=== PATIENT | male | born 1965 | race Caucasian/White ===

== ENCOUNTER 2021-02-03 13:54 | Inpatient (IN) ==
[2021-02-03] MEDS ORDERED: DEXTROSE 50% 25 GM/50 ML VIAL IV PRN (14:21)
[2021-02-03] MEDS ORDERED: GLUCAGON 1 MG VIAL IM PRN (14:21)
[2021-02-03] MEDS ORDERED: NITROGLYCERIN SL 0.4 MG TABLET SL PRN (14:43)
[2021-02-03] MEDS ORDERED: CLORAZEPATE 3.75 MG TABLET PO PRN (14:43)
[2021-02-03] MEDS ORDERED: MORPHINE 2 MG/1 ML SYRINGE IV PRN (14:43)
[2021-02-04 04:21] LABS: ABG Base Excess 0.3 MMOL/L (-2.5-2.5); ABG HCO3 24.7 MMOL/L (20-26); ABG Oxygen Saturation 96.8 % (95-100); ABG PCO2 35.9 MM HG (35-48); ABG PH 7.434 (7.35-7.45); ABG PO2 83.3 MM HG (80-95); ABG TCO2 20.6 MMOL/L (23-27)
[2021-02-04 07:07] LABS: Basophils % 0.8 % (0.0-0.8); Eosinophils # 0.1 10*3/uL (0.0-0.87); Eosinophils % 2.3 % (0.00-10.9); Hemoglobin 14.5 GM/DL (14.0-18.0); Immature Granulocytes % 0.4 %; Immature Granulocytes Absolute 0.02 #; Lymphocytes # 1.4 10*3/uL (1.4-4.0); Lymphocytes % 28.6 % (21.2-54.2); Mean Corpuscular HGB Conc 33.7 GM/DL (32-36); Mean Corpuscular Volume 92.7 FL (87-102); Mean Platelet Volume 10.3 FL (9.6-12.0); Monocytes % 6.3 % (1.7-12.7); Neutrophils % 61.6 % (38.7-73.9); Platelet Count 176 T/CUMM (130-400); Red Blood Count 4.64 MC/CUMM (3.8-5.5); Red Cell Distribution Width 11.9 % (9.3-17.3); White Blood Count 4.8 T/CUMM (4-12)
[2021-02-04 07:32] LABS: Eosinophils 3 % (0-10); Hypochromasia Slight; Lymphocytes 23 % (20-55); Microcytosis Slight; Segmented Neutrophils 66 % (50-85); Total Cells Counted 100
[2021-02-04 07:33] LABS: Atypical Lymphocytes Few; Platelet Estimate Adequate
[2021-02-04 07:49] LABS: Alanine Aminotransferase 42 U/L (16-61); Albumin 3.4 G/DL (3.4-5.0); Alkaline Phosphatase 88 U/L (45-117); Aspartate Amino Transferase 24 U/L (0-37); Blood Urea Nitrogen 12 MG/DL (7-18); Calcium 8.9 MG/DL (8.5-10.1); Estimated Glom Filtration Rate 120 ML/MIN; Glucose 102 MG/DL (74-106); Total Protein 6.9 G/DL (6.4-8.2)
[2021-02-04 07:56] LABS: Sodium 136 MMOL/L (136-145)
[2021-02-04 07:59] LABS: Carbon Dioxide 26 MMOL/L (21-32)
[2021-02-04] MEDS ORDERED: SODIUM CHLORIDE 0.9% 1,000 ML IV SCH (09:00)
[2021-02-04] MEDS: CHLORHEXIDINE 0.12% ORAL RINSE 60 ML BOTTLE SWISH/SPIT SCH ×2 (10:36→21:00)
[2021-02-04] MEDS: CHLORHEXIDINE 4% SOLN 118 ML BOTTLE TOP SCH ×3 (10:38→21:01)
[2021-02-04] MEDS ORDERED: DIAZEPAM 5 MG TABLET PO ONE (10:58)
[2021-02-04] MEDS ORDERED: PANTOPRAZOLE 40 MG TABLET PO ONE (10:58)
[2021-02-04] MEDS: METOPROLOL TARTRATE 25 MG TABLET PO SCH (20:59)
[2021-02-04] MEDS ORDERED: PANTOPRAZOLE 40 MG TABLET PO SCH (21:00)
[2021-02-04] MEDS ORDERED: ROSUVASTATIN 10 MG TABLET PO SCH (21:00)
[2021-02-04] MEDS ORDERED: ASPIRIN EC 81 MG TABLET PO SCH (21:00)
[2021-02-05] MEDS ORDERED: CEFUROXIME INJ 1,500 MG in SODIUM CHLORIDE 0.9% 100 ML IV ONE (05:00)
[2021-02-05] MEDS ORDERED: VANCOMYCIN 500 MG VIAL ONE (05:32)
[2021-02-05] MEDS ORDERED: PAPAVERINE 60 MG/2 ML VIAL ONE (05:32)
[2021-02-05] MEDS ORDERED: VANCOMYCIN 1,000 MG VIAL ONE (05:32)
[2021-02-05] MEDS ORDERED: MIDAZOLAM 10 MG/2 ML VIAL ONE (05:49)
[2021-02-05] MEDS ORDERED: SUFentanil 50 MCG/ML AMP ONE ×2 (05:50→08:53)
[2021-02-05] MEDS ORDERED: SUFentanil 250 MCG/5 ML AMP ONE (05:50)
[2021-02-05] MEDS: METOPROLOL TARTRATE 25 MG TABLET PO SCH (05:51)
[2021-02-05] MEDS ORDERED: DIAZEPAM 5 MG TABLET PO ONE (06:00)
[2021-02-05] MEDS ORDERED: SODIUM CHLORIDE 0.9% 1,000 ML IV SCH (06:00)
[2021-02-05] MEDS ORDERED: PANTOPRAZOLE 40 MG TABLET PO ONE (06:00)
[2021-02-05 07:52] LABS: ABG Base Excess -1.7 MMOL/L (-2.5-2.5); ABG Oxygen Saturation 99.9 % (95-100); ABG PCO2 35.9 MM HG (35-48); ABG PH 7.404 (7.35-7.45); ABG TCO2 19.5 MMOL/L (23-27); Glucose Heart Surgery 121 MG/DL (74-106); Hematocrit Heart Surgery 40.7 PERCENT (42-52); Hemoglobin Heart Surgery 13.2 G/DL (14.0-18.0); Ionized Calcium Arterial 1.17 MMOL/L (1.21-1.46); PCO2 Patient Temp Arterial 35.9 MMHG; PH Patient Temp Arterial 7.404; Patient Temperature 37 CELCIUS; Potassium Heart/CVR 3.7 MMOL/L (3.5-5.1); Sodium Heart/CVR 138 MMOL/L (135-145)
[2021-02-05] MEDS ORDERED: SEVOFLURANE 1 UNIT/15 MINUTE INH ONE ×2 (08:30→11:14)
[2021-02-05] MEDS ORDERED: SODIUM CHLORIDE 0.9% 250 ML IV ONE (08:30)
[2021-02-05] MEDS ORDERED: LIDOCAINE 2% 5 ML VIAL ONE ×2 (08:30→10:36)
[2021-02-05] MEDS ORDERED: SODIUM CHLORIDE 0.9% 2,000 ML IV ONE (08:30)
[2021-02-05] MEDS ORDERED: LACTATED RINGERS 1,000 ML IV ONE (08:30)
[2021-02-05] MEDS ORDERED: VECURONIUM 10 MG VIAL IV ONE (08:30)
[2021-02-05] MEDS ORDERED: PHENYLEPHRINE 1 MG/10 ML SYRINGE IV ONE (08:30)
[2021-02-05] MEDS ORDERED: AMINOCAPROIC ACID 5,000 MG/20 ML VIAL ONE (08:30)
[2021-02-05] MEDS ORDERED: ETOMIDATE 40 MG/20 ML VIAL IV ONE (08:30)
[2021-02-05] MEDS ORDERED: PHENYLEPHRINE DRIP 20 MG/250 ML PREMIX IV ONE (08:30)
[2021-02-05] MEDS ORDERED: GLYCOPYRROLATE 0.4 MG/2 ML VIAL ONE (08:30)
[2021-02-05] MEDS ORDERED: CALCIUM CHLORIDE 1,000 MG/10 ML VIAL IV ONE (08:53)
[2021-02-05 09:08] LABS: Hemoglobin Heart Surgery 9.3 G/DL (14.0-18.0); PCO2 Patient Temp Venous 33.7 MM HG; PH Patient Temp Venous 7.46; PO2 Patient Temp Venous 38.6 MM HG; VBG Base Excess -0.3 MEQ/L (0-4); VBG HCO3 24.1 MEQ/L (24-28); VBG Oxygen Saturation 82.8 %; VBG PCO2 38.4 MMHG (41-51); VBG PH 7.416; VBG PO2 47.7 MMHG (17-40); VBG Total CO2 25.3 MMOL/L
[2021-02-05] MEDS ORDERED: HEPARIN/NACL 0.9% 2 UNITS/ML 1,000 UNIT/500 ML BAG IV ONE (09:08)
[2021-02-05 09:13] LABS: Bilirubin,Urine Negative (Negative); Blood, Urine Small mg/dL (Negative); Glucose,Urine (UA) Negative (Negative); Ketones,Urine Negative (Negative); Mucus,Urine Few /LPF (Occasional); Nitrite,Urine Negative (Negative); Protein,Urine Negative; RBC,Urine 1 /HPF (0-4); Urine Appearance CLEAR (Clear); Urine Color Yellow (Yellow); Urine Specific Gravity 1.025 (1.001-1.035)
[2021-02-05 09:42] LABS: Hemoglobin Heart Surgery 11.4 G/DL (14.0-18.0); PCO2 Patient Temp Venous 30.5 MM HG; PH Patient Temp Venous 7.509; PO2 Patient Temp Venous 39.8 MM HG; VBG HCO3 24.4 MEQ/L (24-28); VBG Oxygen Saturation 84.6 %; VBG PCO2 34.8 MMHG (41-51); VBG PH 7.464; VBG PO2 49.1 MMHG (17-40); VBG Total CO2 25.5 MMOL/L
[2021-02-05 10:12] LABS: Potassium Heart/CVR 5.2 MMOL/L (3.5-5.1); VBG Base Excess 0.8 MEQ/L (0-4); VBG HCO3 23.9 MEQ/L (24-28); VBG Oxygen Saturation 78.1 %; VBG PCO2 33.2 MMHG (41-51); VBG PH 7.476; VBG PO2 41.8 MMHG (17-40)
[2021-02-05 10:13] LABS: Hemoglobin Heart Surgery 11.6 G/DL (14.0-18.0); PCO2 Patient Temp Venous 33.2 MM HG; PH Patient Temp Venous 7.476; PO2 Patient Temp Venous 41.8 MM HG
[2021-02-05] MEDS ORDERED: SODIUM BICARBONATE 50 MEQ/50 ML VIAL IV ONE ×2 (10:18→10:38)
[2021-02-05] MEDS ORDERED: POTASSIUM CHLORIDE RIDER 20 MEQ/100 ML PREMIX IV ONE (10:19)
[2021-02-05] MEDS ORDERED: NITROPRUSSIDE 50 MG/2 ML VIAL ONE (10:19)
[2021-02-05] MEDS ORDERED: CALCIUM CHLORIDE 1,000 MG/10 ML SYRINGE IV ONE (10:19)
[2021-02-05] MEDS ORDERED: PHENYLEPHRINE DRIP 40 MG/250 ML PREMIX IV ONE (10:19)
[2021-02-05] MEDS ORDERED: ALBUMIN 5% 12.5 GM/250 ML VIAL IV ONE ×2 (10:20→10:22)
[2021-02-05] MEDS ORDERED: ATROPINE 1 MG/10 ML SYRINGE ONE (10:21)
[2021-02-05] MEDS ORDERED: LIDOCAINE 100 MG/5 ML SYRINGE ONE (10:21)
[2021-02-05] MEDS ORDERED: EPINEPHrine 1 MG/10 ML SYRINGE ONE (10:21)
[2021-02-05] MEDS ORDERED: ALBUMIN 25% 25 GM/100 ML VIAL IV ONE (10:36)
[2021-02-05] MEDS ORDERED: MAGNESIUM SULFATE 5 GM/10 ML VIAL IV ONE (10:36)
[2021-02-05] MEDS ORDERED: methylPREDNISolone SOD SUC 1,000 MG/8 ML VIAL ONE (10:37)
[2021-02-05] MEDS ORDERED: MANNITOL 100 GM/500 ML BAG IV ONE (10:37)
[2021-02-05] MEDS ORDERED: DEXTROSE 5% KCL 20 MEQ 20 MEQ/1,000 ML BAG IV ONE (10:37)
[2021-02-05] MEDS ORDERED: PROTAMINE SULFATE 250 MG/25 ML VIAL IV ONE (10:37)
[2021-02-05] MEDS ORDERED: HEPARIN 10,000 UNIT/10 ML VIAL ONE (10:37)
[2021-02-05] MEDS ORDERED: FUROSEMIDE 20 MG/2 ML VIAL ONE (10:38)
[2021-02-05] MEDS ORDERED: PROTAMINE SULFATE 50 MG/5 ML VIAL IV ONE ×4 (10:38→12:00)
[2021-02-05 10:47] LABS: ABG Base Excess -0.9 MMOL/L (-2.5-2.5); ABG HCO3 24.2 MMOL/L (20-26); ABG Oxygen Saturation 98.4 % (95-100); ABG PCO2 41.5 MM HG (35-48); ABG PH 7.383 (7.35-7.45); ABG PO2 207.5 MM HG (80-95); ABG TCO2 25.4 MMOL/L (23-27); Glucose Heart Surgery 196 MG/DL (74-106); Hemoglobin Heart Surgery 11.4 G/DL (14.0-18.0); Ionized Calcium Arterial 1.17 MMOL/L (1.21-1.46); PCO2 Patient Temp Arterial 41.5 MMHG; PH Patient Temp Arterial 7.383; PO2 Patient Temp Arterial 207.5 MM HG; Patient Temperature 37 CELCIUS; Potassium Heart/CVR 3.8 MMOL/L (3.5-5.1); Sodium Heart/CVR 134 MMOL/L (135-145)
[2021-02-05] MEDS ORDERED: INSULIN REGULAR 100 UNIT/ML IV ONE (11:39)
[2021-02-05] MEDS ORDERED: NITROPRUSSIDE 100 MG in DEXTROSE 5% 250 ML IV PRN (11:39)
[2021-02-05] MEDS ORDERED: INSULIN REGULAR 100 UNIT/ML IV PRN (11:39)
[2021-02-05] MEDS ORDERED: CALCIUM CHLORIDE 1,000 MG/10 ML SYRINGE IV PRN (11:39)
[2021-02-05] MEDS ORDERED: ONDANSETRON 4 MG/2 ML VIAL IV PRN (11:39)
[2021-02-05] MEDS ORDERED: SODIUM CHLORIDE 0.45% 1,000 ML IV SCH ×2 (11:39)
[2021-02-05] MEDS ORDERED: POTASSIUM CHLORIDE RIDER 10 MEQ/100 ML PREMIX IV PRN (11:39)
[2021-02-05] MEDS ORDERED: MIDAZOLAM 2 MG/2 ML VIAL IV PRN (11:39)
[2021-02-05] MEDS ORDERED: MAGNESIUM SULF RIDER 2 GM/50 ML PREMIX IV PRN (11:39)
[2021-02-05] MEDS ORDERED: VECURONIUM 10 MG VIAL IV PRN ×2 (11:39)
[2021-02-05] MEDS ORDERED: DEXTROSE 50% 25 GM/50 ML VIAL IV PRN ×2 (11:39)
[2021-02-05] MEDS ORDERED: PHENYLEPHRINE DRIP 40 MG/250 ML PREMIX IV PRN (11:39)
[2021-02-05] MEDS ORDERED: CHLORHEXIDINE 4% SOLN 118 ML BOTTLE TOP PRN (11:39)
[2021-02-05] MEDS ORDERED: ALBUMIN 5% 12.5 GM/250 ML VIAL IV PRN (11:39)
[2021-02-05] MEDS ORDERED: ACETAMINOPHEN 650 MG SUPP RECTAL PRN (11:39)
[2021-02-05] MEDS ORDERED: INSULIN REGULAR DRIP 100 ML IV SCH (11:39)
[2021-02-05] MEDS ORDERED: MIDAZOLAM 10 MG/2 ML VIAL IV PRN (11:39)
[2021-02-05] MEDS ORDERED: MORPHINE 10 MG/1 ML VIAL IV PRN (11:39)
[2021-02-05] MEDS ORDERED: MAGNESIUM SULF RIDER 4 GM/100 ML PREMIX IV PRN (11:39)
[2021-02-05] MEDS ORDERED: LACTATED RINGERS 250 ML IV PRN (11:39)
[2021-02-05 11:48] LABS: ABG Base Excess -0.9 MMOL/L (-2.5-2.5); ABG HCO3 22.3 MMOL/L (20-26); ABG Oxygen Saturation 98.7 % (95-100); ABG PCO2 32.7 MM HG (35-48); ABG PH 7.452 (7.35-7.45); ABG PO2 206.2 MM HG (80-95); ABG TCO2 23.3 MMOL/L (23-27); Glucose Heart Surgery 175 MG/DL (74-106); Hemoglobin Heart Surgery 12.7 G/DL (14.0-18.0); Potassium Heart/CVR 3.3 MMOL/L (3.5-5.1)
[2021-02-05 11:49] LABS: Basophils % 0.3 % (0.0-0.8); Eosinophils % 0.4 % (0.00-10.9); Hematocrit 32.2 VOL% (42.0-52.0); Hemoglobin 11.2 GM/DL (14.0-18.0); Immature Granulocytes Absolute 0.08 #; Lymphocytes # 0.7 10*3/uL (1.4-4.0); Lymphocytes % 9.3 % (21.2-54.2); Mean Corpuscular HGB Conc 34.8 GM/DL (32-36); Mean Corpuscular Volume 90.4 FL (87-102); Mean Platelet Volume 10.5 FL (9.6-12.0); Monocytes % 2.6 % (1.7-12.7); Neutrophils % 86.4 % (38.7-73.9); Platelet Count 135 T/CUMM (130-400); Red Blood Count 3.56 MC/CUMM (3.8-5.5); Red Cell Distribution Width 11.7 % (9.3-17.3); White Blood Count 7.8 T/CUMM (4-12)
[2021-02-05 11:59] LABS: INR 1.2; PT Patient Result 13.4 SECS (10.5-12.0); Partial Thromboplastin Time 29.9 SECS (23.9-33.8)
[2021-02-05] MEDS: LACTATED RINGERS 1,000 ML IV PRN ×4 (12:00→18:05)
[2021-02-05 12:13] LABS: Albumin 2.8 G/DL (3.4-5.0); Bilirubin,Total 1.1 MG/DL (0.20-1.00); Calcium 7.7 MG/DL (8.5-10.1); Osmolality,Calculated 289.8 MOS/KG (273-304); Potassium 3.5 MMOL/L (3.5-5.1); Total Protein 5.1 G/DL (6.4-8.2)
[2021-02-05 12:14] LABS: CKMB % 7.5 %
[2021-02-05 12:26] LABS: High Sensitive Troponin I* 4103.6 ng/L (0-78)
[2021-02-05] MEDS: KETOROLAC 30 MG/1 ML VIAL IV SCH ×2 (13:53→18:30)
[2021-02-05 15:15] LABS: ABG Oxygen Saturation 97.8 % (95-100); ABG PCO2 37.1 MM HG (35-48); ABG PH 7.446 (7.35-7.45); ABG PO2 125.1 MM HG (80-95); ABG TCO2 26.1 MMOL/L (23-27); Glucose Heart Surgery 201 MG/DL (74-106); Hemoglobin Heart Surgery 8.3 G/DL (14.0-18.0); Potassium Heart/CVR 3.1 MMOL/L (3.5-5.1)
[2021-02-05 17:25] LABS: ABG Base Excess 0.3 MMOL/L (-2.5-2.5); ABG HCO3 24.9 MMOL/L (20-26); ABG Oxygen Saturation 96.7 % (95-100); ABG PCO2 40.1 MM HG (35-48); ABG PH 7.411 (7.35-7.45); ABG PO2 96.4 MM HG (80-95); ABG TCO2 26.1 MMOL/L (23-27); Glucose Heart Surgery 220 MG/DL (74-106); Hemoglobin Heart Surgery 9.9 G/DL (14.0-18.0); Potassium Heart/CVR 3.2 MMOL/L (3.5-5.1)
[2021-02-05] MEDS: POTASSIUM CHLORIDE RIDER 20 MEQ/100 ML PREMIX IV PRN ×3 (17:36→21:37)
[2021-02-05] MEDS: CEFUROXIME INJ 1,500 MG in SODIUM CHLORIDE 0.9% 100 ML IV SCH (20:11)
[2021-02-05 20:32] LABS: CKMB % 6.8 %; High Sensitive Troponin I* 4466.8 ng/L (0-78)
[2021-02-05] MEDS ORDERED: CHLORHEXIDINE 0.12% ORAL RINSE 60 ML BOTTLE SWISH/SPIT SCH (21:00)
[2021-02-05 21:24] LABS: ABG Base Excess -0.4 MMOL/L (-2.5-2.5); ABG HCO3 24.3 MMOL/L (20-26); ABG Oxygen Saturation 96.8 % (95-100); ABG PCO2 39.6 MM HG (35-48); ABG PH 7.405 (7.35-7.45); ABG PO2 96.2 MM HG (80-95); ABG TCO2 25.5 MMOL/L (23-27); Glucose Heart Surgery 183 MG/DL (74-106); Hemoglobin Heart Surgery 11.6 G/DL (14.0-18.0); Potassium Heart/CVR 3.8 MMOL/L (3.5-5.1)
[2021-02-05] MEDS: INSULIN REGULAR 100 UNIT/ML SUBCUT SCH ×2 (22:02→22:08)
[2021-02-06] MEDS: KETOROLAC 30 MG/1 ML VIAL IV SCH ×4 (01:25→21:18)
[2021-02-06] MEDS: INSULIN REGULAR 100 UNIT/ML SUBCUT SCH ×2 (02:22→05:36)
[2021-02-06 03:22] LABS: ABG HCO3 24.9 MMOL/L (20-26); ABG Oxygen Saturation 96.9 % (95-100); ABG PCO2 36.8 MM HG (35-48); ABG PH 7.448 (7.35-7.45); ABG PO2 94.4 MM HG (80-95); Glucose Heart Surgery 139 MG/DL (74-106); Hemoglobin Heart Surgery 10.9 G/DL (14.0-18.0); Potassium Heart/CVR 3.8 MMOL/L (3.5-5.1)
[2021-02-06 03:26] LABS: Basophils % 0.1 % (0.0-0.8); Hematocrit 29.5 VOL% (42.0-52.0); Hemoglobin 10.2 GM/DL (14.0-18.0); Immature Granulocytes % 0.4 %; Immature Granulocytes Absolute 0.03 #; Lymphocytes # 0.6 10*3/uL (1.4-4.0); Lymphocytes % 6.8 % (21.2-54.2); Mean Corpuscular HGB Conc 34.6 GM/DL (32-36); Mean Platelet Volume 10.2 FL (9.6-12.0); Monocytes % 4.2 % (1.7-12.7); Neutrophils % 88.5 % (38.7-73.9); Platelet Count 146 T/CUMM (130-400); Red Blood Count 3.24 MC/CUMM (3.8-5.5); Red Cell Distribution Width 12.3 % (9.3-17.3); White Blood Count 8.4 T/CUMM (4-12)
[2021-02-06] MEDS: POTASSIUM CHLORIDE RIDER 20 MEQ/100 ML PREMIX IV PRN (03:47)
[2021-02-06 04:01] LABS: Albumin 3.4 G/DL (3.4-5.0); Bilirubin,Direct 0.27 MG/DL (0.0-0.20); CKMB % 11.3 %; Calcium 7.8 MG/DL (8.5-10.1); Osmolality,Calculated 282.3 MOS/KG (273-304); Potassium 3.9 MMOL/L (3.5-5.1); Total Protein 5.5 G/DL (6.4-8.2)
[2021-02-06 04:27] LABS: High Sensitive Troponin I* 10537.1 ng/L (0-78)
[2021-02-06] MEDS: CHLORHEXIDINE 0.12% ORAL RINSE 60 ML BOTTLE SWISH/SPIT SCH ×3 (07:19→21:18)
[2021-02-06] MEDS: METOPROLOL TARTRATE 25 MG TABLET PO SCH ×3 (07:19→21:18)
[2021-02-06] MEDS ORDERED: GLUCAGON 1 MG VIAL IM PRN (08:03)
[2021-02-06] MEDS ORDERED: ONDANSETRON 4 MG/2 ML VIAL IV PRN (08:03)
[2021-02-06] MEDS ORDERED: ALUMINUM/MAGNES/SIMETH MAX STR 30 ML UDCUP PO PRN (08:03)
[2021-02-06] MEDS ORDERED: ZALEPLON 5 MG CAPSULE PO PRN (08:03)
[2021-02-06] MEDS ORDERED: MAGNESIUM SULF RIDER 4 GM/100 ML PREMIX IV PRN (08:03)
[2021-02-06] MEDS ORDERED: POTASSIUM CHLORIDE 20 MEQ TABLET PO PRN (08:03)
[2021-02-06] MEDS ORDERED: DEXTROSE 50% 25 GM/50 ML VIAL IV PRN (08:03)
[2021-02-06] MEDS ORDERED: MAGNESIUM HYDROXIDE SUSP 30 ML UDCUP PO PRN (08:03)
[2021-02-06] MEDS ORDERED: ACETAMINOPHEN 325 MG TABLET PO PRN (08:03)
[2021-02-06] MEDS ORDERED: MAGNESIUM SULF RIDER 2 GM/50 ML PREMIX IV PRN (08:03)
[2021-02-06] MEDS: CEFUROXIME INJ 1,500 MG in SODIUM CHLORIDE 0.9% 100 ML IV SCH ×2 (08:27→21:19)
[2021-02-06] MEDS: SODIUM CHLOR 0.45% KCL 20 MEQ 20 MEQ/1,000 ML BAG IV SCH (08:27)
[2021-02-06] MEDS: PANTOPRAZOLE 40 MG TABLET PO SCH (08:28)
[2021-02-06] MEDS: FERROUS SULFATE 325 MG TABLET PO SCH (08:28)
[2021-02-06] MEDS: ASPIRIN EC 325 MG TABLET PO SCH (08:28)
[2021-02-06] MEDS: DOCUSATE SODIUM 100 MG CAPSULE PO SCH (08:28)
[2021-02-06] MEDS: oxyCODONE/ACETAMINOPHEN 5-325 MG TABLET PO PRN ×2 (11:18→21:18)
[2021-02-06 11:50] LABS: CKMB % 9.3 %
[2021-02-06 11:56] LABS: High Sensitive Troponin I* 12652.3 ng/L (0-78)
[2021-02-06 17:45] LABS: CKMB % 7.1 %; High Sensitive Troponin I* 10447.3 ng/L (0-78)
[2021-02-07] MEDS: KETOROLAC 30 MG/1 ML VIAL IV SCH ×4 (00:30→21:30)
[2021-02-07] MEDS ORDERED: FUROSEMIDE 40 MG/4 ML VIAL IV ONE (06:00)
[2021-02-07 06:08] LABS: Basophils % 0.1 % (0.0-0.8); Hematocrit 30.3 VOL% (42.0-52.0); Hemoglobin 10.2 GM/DL (14.0-18.0); Immature Granulocytes % 0.5 %; Immature Granulocytes Absolute 0.05 #; Lymphocytes # 1.3 10*3/uL (1.4-4.0); Mean Corpuscular HGB Conc 33.7 GM/DL (32-36); Mean Corpuscular Volume 95.3 FL (87-102); Mean Platelet Volume 11.2 FL (9.6-12.0); Monocytes % 6.5 % (1.7-12.7); Neutrophils % 79.9 % (38.7-73.9); Platelet Count 146 T/CUMM (130-400); Red Blood Count 3.18 MC/CUMM (3.8-5.5); White Blood Count 10.1 T/CUMM (4-12)
[2021-02-07 06:34] LABS: Albumin 3.1 G/DL (3.4-5.0); Bilirubin,Direct 0.11 MG/DL (0.0-0.20); Bilirubin,Direct 0.15 MG/DL (0.0-0.20); Bilirubin,Indirect 1.1 MG/DL (0.0-1.0); Bilirubin,Total 0.7 MG/DL (0.20-1.00); Bilirubin,Total 1.2 MG/DL (0.20-1.00); CKMB % 5.1 %; Calcium 8.6 MG/DL (8.5-10.1); Osmolality,Calculated 278.5 MOS/KG (273-304); Potassium 4.3 MMOL/L (3.5-5.1)
[2021-02-07 06:36] LABS: High Sensitive Troponin I* 6796.7 ng/L (0-78)
[2021-02-07] MEDS: DOCUSATE SODIUM 100 MG CAPSULE PO SCH (09:26)
[2021-02-07] MEDS: METOPROLOL TARTRATE 25 MG TABLET PO SCH ×2 (09:26→20:54)
[2021-02-07] MEDS: ASPIRIN EC 325 MG TABLET PO SCH (09:27)
[2021-02-07] MEDS: PANTOPRAZOLE 40 MG TABLET PO SCH (09:27)
[2021-02-07] MEDS: FERROUS SULFATE 325 MG TABLET PO SCH (09:27)
[2021-02-07] MEDS: CHLORHEXIDINE 0.12% ORAL RINSE 60 ML BOTTLE SWISH/SPIT SCH ×2 (09:28→20:55)
[2021-02-07] MEDS: SODIUM CHLOR 0.45% KCL 20 MEQ 20 MEQ/1,000 ML BAG IV SCH (09:29)
[2021-02-07] MEDS: oxyCODONE/ACETAMINOPHEN 5-325 MG TABLET PO PRN (21:21)
[2021-02-08 06:47] LABS: Basophils % 0.3 % (0.0-0.8); Eosinophils # 0.1 10*3/uL (0.0-0.87); Hematocrit 27.2 VOL% (42.0-52.0); Hemoglobin 8.9 GM/DL (14.0-18.0); Immature Granulocytes % 0.8 %; Immature Granulocytes Absolute 0.06 #; Lymphocytes # 1.4 10*3/uL (1.4-4.0); Mean Corpuscular HGB Conc 32.7 GM/DL (32-36); Mean Corpuscular Volume 97.8 FL (87-102); Mean Platelet Volume 11.5 FL (9.6-12.0); Monocytes % 7.2 % (1.7-12.7); Neutrophils % 71.7 % (38.7-73.9); Platelet Count 132 T/CUMM (130-400); Red Blood Count 2.78 MC/CUMM (3.8-5.5); White Blood Count 7.1 T/CUMM (4-12)
[2021-02-08 07:02] LABS: Albumin 2.5 G/DL (3.4-5.0); Bilirubin,Direct 0.15 MG/DL (0.0-0.20); Bilirubin,Total 0.7 MG/DL (0.20-1.00); Calcium 7.5 MG/DL (8.5-10.1); Osmolality,Calculated 281.3 MOS/KG (273-304); Potassium 3.4 MMOL/L (3.5-5.1); Total Protein 5.3 G/DL (6.4-8.2)
[2021-02-08 07:06] LABS: Alanine Aminotransferase 44 U/L (16-61); Albumin 2.7 G/DL (3.4-5.0); Alkaline Phosphatase 54 U/L (45-117); Aspartate Amino Transferase 44 U/L (0-37); Bilirubin,Indirect 0.9 MG/DL (0.0-1.0); Total Protein 5.6 G/DL (6.4-8.2)
[2021-02-08] MEDS: KETOROLAC 30 MG/1 ML VIAL IV SCH ×3 (07:37→18:04)
[2021-02-08] MEDS ORDERED: POTASSIUM CHLORIDE 20 MEQ TABLET PO ONE (08:00)
[2021-02-08] MEDS ORDERED: LACTULOSE 20 GM/30 ML UDCUP PO PRN (08:38)
[2021-02-08] MEDS: DOCUSATE SODIUM 100 MG CAPSULE PO SCH (09:24)
[2021-02-08] MEDS: METOPROLOL TARTRATE 25 MG TABLET PO SCH ×2 (09:24→21:55)
[2021-02-08] MEDS: PANTOPRAZOLE 40 MG TABLET PO SCH (09:24)
[2021-02-08] MEDS: ASPIRIN EC 325 MG TABLET PO SCH (09:24)
[2021-02-08] MEDS: CHLORHEXIDINE 0.12% ORAL RINSE 60 ML BOTTLE SWISH/SPIT SCH ×2 (09:25→21:55)
[2021-02-08] MEDS: FERROUS SULFATE 325 MG TABLET PO SCH (09:30)
[2021-02-08] MEDS: POLYETHYLENE GLYCOL POWDER 17 GM PACK PO SCH (09:31)
[2021-02-09 06:12] LABS: Basophils % 0.3 % (0.0-0.8); Eosinophils # 0.1 10*3/uL (0.0-0.87); Eosinophils % 1.8 % (0.00-10.9); Hematocrit 28.3 VOL% (42.0-52.0); Hemoglobin 9.5 GM/DL (14.0-18.0); Immature Granulocytes % 0.7 %; Immature Granulocytes Absolute 0.05 #; Lymphocytes # 1.2 10*3/uL (1.4-4.0); Lymphocytes % 17.5 % (21.2-54.2); Mean Corpuscular HGB Conc 33.6 GM/DL (32-36); Mean Corpuscular Volume 96.6 FL (87-102); Mean Platelet Volume 11.3 FL (9.6-12.0); Monocytes % 6.1 % (1.7-12.7); Neutrophils % 73.6 % (38.7-73.9); Platelet Count 177 T/CUMM (130-400); Red Blood Count 2.93 MC/CUMM (3.8-5.5); Red Cell Distribution Width 12.8 % (9.3-17.3); White Blood Count 6.8 T/CUMM (4-12)
[2021-02-09 06:37] LABS: Albumin 2.7 G/DL (3.4-5.0); Bilirubin,Total 0.5 MG/DL (0.20-1.00); Calcium 8.3 MG/DL (8.5-10.1); Osmolality,Calculated 281.3 MOS/KG (273-304); Potassium 3.6 MMOL/L (3.5-5.1); Total Protein 5.9 G/DL (6.4-8.2)
[2021-02-09] MEDS: ASPIRIN EC 325 MG TABLET PO SCH (10:06)
[2021-02-09] MEDS: KETOROLAC 30 MG/1 ML VIAL IV SCH (10:06)
[2021-02-09] MEDS: PANTOPRAZOLE 40 MG TABLET PO SCH (10:07)
[2021-02-09] MEDS: DOCUSATE SODIUM 100 MG CAPSULE PO SCH (10:07)
[2021-02-09] MEDS: CHLORHEXIDINE 0.12% ORAL RINSE 60 ML BOTTLE SWISH/SPIT SCH (10:07)
[2021-02-09] MEDS: FERROUS SULFATE 325 MG TABLET PO SCH (10:07)
[2021-02-09] MEDS: METOPROLOL TARTRATE 25 MG TABLET PO SCH (10:07)
[2021-02-09] MEDS: POLYETHYLENE GLYCOL POWDER 17 GM PACK PO SCH (10:08)
[2021-02-09 11:51] VITALS: BP 142/81
== END 2021-02-09 13:50 | disposition home health service (06) | DRG 236 ==
LOC: N.TELES 18:58 → N.CVR 02-05 11:13 → N.TELES 02-06 08:59